=== PATIENT | female | born 1960 | race Hispanic/Latino ===

== ENCOUNTER 2017-11-11 14:27 | Outpatient (CLI) | payer OTHER | END 2017-11-11 14:28 | disposition home or self-care (01) | LOC: BICMAMMO 14:27 | PROVIDERS: ATTEND Family Medicine | DX: Z12.31 Encounter for screening mammogram for malignant neoplasm of breast (principal); M85.89 Other specified disorders of bone density and structure, multiple sites; Z13.820 Encounter for screening for osteoporosis; Z85.6 Personal history of leukemia; Z80.3 Family history of malignant neoplasm of breast | CPT/HCPCS: 77063; 77067; 77080 ==

== ENCOUNTER 2017-12-18 10:52 | Day surgery (SDC) | payer OTHER ==
[2017-12-17 11:51] VITALS: BMI 34.7
--- NOTE | 2017-12-18 13:57 | OP ---
DATE OF PROCEDURE: 12/18/2017 TITLE OF PROCEDURE: Colonoscopy with snare polypectomy and biopsy. PREOPERATIVE DIAGNOSIS: History of polyps. POSTOPERATIVE DIAGNOSES: 1. Exam to cecum; good bowel preparation. 2. Moderate diffuse diverticulosis coli. 3. Mildly tortuous colon throughout. 4. Four diminutive sessile polyps in the mid to distal transverse colon, removed by cold snare or co ld biopsy forceps. 5. Small polyp in the sigmoid colon (5 mm), removed by snare electrocautery. 6. Small internal hemorrhoids. 7. Otherwise normal colonoscopy. PROCEDURE IN DETAIL: Written informed consent was obtained. The patient was brought to the endoscop y suite. Total intravenous anesthesia was provided by [facility]. The patient was placed in the left lateral decubitus position. A digital rectal exam was performed, which revealed small exter nal tags. A Pentax video colonoscope was inserted through the anal canal and advanced under direct v isualization to the cecum. Position in the cecum was verified by clear identification of the appendi ceal orifice and the ileocecal valve. The quality of the bowel preparation was good. Each colon seg ment was examined carefully as the colonoscope was slowly withdrawn from the cecum. Vascular pattern and haustral folds appeared normal. Mild diffuse brownish discoloration of the colonic mucosa was o bserved consistent with mild melanosis coli. Frequent diverticular orifices were noted throughout th e colon, most numerous in the sigmoid colon. In the mid to distal transverse colon, 4 diminutive ses sile polyps were identified and removed by cold snare technique (2) and cold biopsy forceps (2). The tissue was submitted from each polypectomy and good hemostasis was verified after each polypectomy. Another small 5 mm sessile polyp was identified in the sigmoid colon and removed by snare electrocau gianluca. Good hemostasis was verified post-polypectomy. No other polyps were noted besides the 5 menti oned above. In the rectum, a retroflexed view demonstrated small internal hemorrhoids that were not actively bleeding. The colon was decompressed as the colonoscope was removed from the patient. She was transferred to the day stay surgery area for post-procedure monitoring. There were no immediate complications. RECOMMENDATIONS: 1. Await pathology results. 2. Ask patient to call me in 1 week for pathology results. 3. Avoid aspirin or aspirin-like medications for the next 10 days. 4. Pending pathology results, we will recommend surveillance colonoscopy in 3-5 years. 5. High fiber diet. 6. Resume usual medications.
== END 2017-12-18 14:20 | disposition home or self-care (01) ==
LOC: SDC 10:52
PROVIDERS: ATTEND Internal Medicine Gastroenterology
PROC: 0DBL8ZX Excision of Transverse Colon, Via Natural or Artificial Opening Endoscopic, Diagnostic (ICD-10-PCS; principal; 2017-12-18)
PROC: 0DBN8ZX Excision of Sigmoid Colon, Via Natural or Artificial Opening Endoscopic, Diagnostic (ICD-10-PCS; principal; 2017-12-18)
DX: Z12.11 Encounter for screening for malignant neoplasm of colon (principal); D12.3 Benign neoplasm of transverse colon; K63.5 Polyp of colon; K57.30 Diverticulosis of large intestine without perforation or abscess without bleeding; K64.8 Other hemorrhoids; E89.0 Postprocedural hypothyroidism; E78.00 Pure hypercholesterolemia, unspecified; I10 Essential (primary) hypertension; Z86.010 Personal history of colon polyps; Z85.6 Personal history of leukemia; Z79.899 Other long term (current) drug therapy; Z88.1 Allergy status to other antibiotic agents
CPT/HCPCS: 88305

== ENCOUNTER 2018-11-26 13:23 | Outpatient (CLI) | payer OTHER ==
--- NOTE | 2018-11-26 14:10 | MMO ---
Bilateral MAMMO Bilat Screen [facility]. CLINICAL HISTORY: Patient is 58 years old and is seen for screening. The patient has no family history of breast cancer. The patient has a history of leukemia at age 35. VIEWS: The views performed were: bilateral craniocaudal with tomosynthesis and bilateral mediolateral oblique with tomosynthesis. FILMS COMPARED: The present examination has been compared to prior imaging studies performed at [facility] on 11/11/2017, and at [facility] on 06/11/2015. MAMMOGRAM FINDINGS: There are scattered fibroglandular densities. There are no suspicious masses, calcifications or areas of architectural distortion. There are benign appearing calcifications in both breasts. There are no suspicious masses, suspicious calcifications, or new areas of architectural distortion. IMPRESSION: THERE IS NO MAMMOGRAPHIC EVIDENCE OF MALIGNANCY. A ROUTINE FOLLOW-UP MAMMOGRAM IN 1 YEAR IS RECOMMENDED. THE RESULTS OF THIS EXAM WERE SENT TO THE PATIENT. ACR BI-RADS Category 2 - Benign finding MAMMOGRAPHY NOTE: 1. A negative mammogram report should not delay a biopsy if a dominant of clinically suspicious mass is present. 2. Approximately 10% to 15% of breast cancers are not detected by mammography. 3. Adenosis and dense breasts may obscure an underlying neoplasm. Reported by: KOLTON MONTANO MD Electonically Signed: [id number]
== END 2018-11-26 13:24 | disposition home or self-care (01) ==
LOC: BICMAMMO 13:23
PROVIDERS: ATTEND Internal Medicine Medical Oncology
DX: Z12.31 Encounter for screening mammogram for malignant neoplasm of breast (principal); Z85.6 Personal history of leukemia
CPT/HCPCS: 77063; 77067

== ENCOUNTER 2020-12-17 13:05 | Outpatient (CLI) | payer OTHER | END 2020-12-17 13:06 | disposition home or self-care (01) | LOC: BICMAMMO 13:05 | PROVIDERS: ATTEND Internal Medicine Medical Oncology | DX: Z12.31 Encounter for screening mammogram for malignant neoplasm of breast (principal); Z80.3 Family history of malignant neoplasm of breast; Z85.6 Personal history of leukemia | CPT/HCPCS: 77063; 77067 ==

== ENCOUNTER 2021-12-23 07:47 | Outpatient (CLI) | payer BC | END 2021-12-23 07:48 | disposition home or self-care (01) | LOC: BICMAMMO 07:47 | PROVIDERS: ATTEND Internal Medicine Medical Oncology | DX: Z12.31 Encounter for screening mammogram for malignant neoplasm of breast (principal); Z80.3 Family history of malignant neoplasm of breast; Z85.6 Personal history of leukemia | CPT/HCPCS: 77063; 77067 ==